=== PATIENT | male | born 1945 | race Caucasian/White ===

== ENCOUNTER 2023-03-05 10:02 | Emergency (ER) | payer MEDICARE, OTHER ==
[~2023-03-05] VITALS: Ht 182.9 cm; Wt 90.0 kg
[2023-03-05 11:02] VITALS: BP 164/72; PULSE 70; RESP 14; TEMP 97.9; O2SAT 97
[2023-03-05] MEDS: HYDROcodone-ACET 5/325MG TAB ONE ×2 (12:06→12:08)
[2023-03-05] MEDS ORDERED: HYDROcodone-ACET 5/325MG TAB PO ONE (12:15)
[2023-03-05] MEDS ORDERED: methylPREDNISolone SOD SUCC 125 MG/2 ML VL IM ONE (12:45)
[2023-03-05] MEDS ORDERED: PRED20TA2 PO (12:47)
[2023-03-05] MEDS ORDERED: CIPR-173 PO (12:47)
[2023-03-05] MEDS ORDERED: ACET-1080 PO (12:47)
[2023-03-05] MEDS ORDERED: COLC1CAP PO (12:48)
== END 2023-03-05 13:00 | disposition home or self-care (01) ==
LOC: ER 10:02
DX: M10.9 Gout, unspecified (principal); N39.0 Urinary tract infection, site not specified; I10 Essential (primary) hypertension
CPT/HCPCS: 29515; 73610; 96372; 99283; J2930

== ENCOUNTER 2023-07-17 14:46 | Emergency (ER) | payer MEDICARE, OTHER ==
[~2023-07-17] VITALS: Ht 182.9 cm; Wt 93.3 kg
[~2023-07-17 14:46] MED LIST: ACET-1080 PO; CIPR-173 PO; COLC1CAP PO; GLYC2SUP16 RE; LACT10SO3 PO; PRED20TA2 PO
[2023-07-17 16:45] LABS: Urine Bacteria FEW /hpf (None Seen); Urine Blood Negative /uL (Negative); Urine Clarity Clear (Clear); Urine Color Light-Yellow (Yellow); Urine Protein, UAD Negative (Negative); Urine Specific Gravity 1.019 (1.001-1.035); Urine Urobilinogen Normal (Negative); Urine WBC 86 /hpf (0 - 3)
[2023-07-17] MEDS ORDERED: CIPR-173 PO (16:49)
[2023-07-17 16:55] VITALS: BP 164/70; PULSE 67; RESP 20; TEMP 98.1; O2SAT 96
== END 2023-07-17 16:51 | disposition home or self-care (01) ==
LOC: ER 14:46
DX: N39.0 Urinary tract infection, site not specified (principal); I10 Essential (primary) hypertension; M10.9 Gout, unspecified; Z79.2 Long term (current) use of antibiotics; Z79.899 Other long term (current) drug therapy
CPT/HCPCS: 81001